=== PATIENT | female | born 1950 | race Caucasian/White ===

== ENCOUNTER 2016-04-23 09:30 | Day surgery (SDC) | payer MEDICARE, OTHER ==
[~2016-04-23] VITALS: Ht 154.9 cm; Wt 65.0 kg
[~2016-04-23 09:30] MED LIST: 0.9% Sodium Chloride 1,000 ML IV PRN; ACYC200C PO; BUTA-253 PO; CHOL100045 PO; ESTR1TAB36 PO; MEDR2.5T7 PO; MINO50CA PO; MULT-666 PO; SYN75 PO; Sodium Chloride LOK Flush 10 mL Syringe IV PRN; fentaNYL-PF 50 mCg/mL 2 mL Inj IVPUSH PRN
[2016-04-23 10:07] VITALS: BP 119/77; PULSE 72; RESP 14; O2SAT 100
[2016-04-23 11:20] VITALS: BP 113/72; PULSE 77; RESP 16; O2SAT 100
[2016-04-23 11:30] VITALS: BP 108/69; PULSE 66; RESP 16; O2SAT 100
[2016-04-23 11:40] VITALS: BP 112/71; PULSE 67; RESP 16; O2SAT 100
--- NOTE | 2016-04-24 11:14 | PATH ---
SURGICAL PATHOLOGY Attending Physician:Arias Hawkins M.D. CASE STATUS: Signed Out PATIENT NAME: JANET MUÑIZ PID: [id number] : 1950 DATE COLLECTED:04/23/2016 19:45 SPECIMEN: 1: Colon, Biopsy 2: Colon, Biopsy CLINICAL HISTORY: SCREENING, COLON POLYPS 1). ASCENDING POLYPS 2). TRANSVERSE POLYPS FINAL DIAGNOSIS: 1.ASCENDING COLON POLYPS: TUBULAR ADENOMA INVOLVING BOTH BIOPSY FRAGMENTS. 2.TRANSVERSE COLON POLYP: TUBULAR ADENOMA INVOLVING SINGLE BIOPSY FRAGMENT. ICD10 CODE D12.2 GROSS DESCRIPTION: The specimen is received in two formalin filled containers labeled with the patient's name. 1). The specimen is sublabeled "ascending polyp" and consists of 2 portions of tissue which aggregate to 0.3 x 0.3 x 0.2 CM. The specimen is entirely submitted in cassette 1A. 2). The specimen is sublabeled "transverse polyps" and consists of 2 portions of tissue which aggregate to 0.3 x 0.3 x 0.2 CM. The specimen and is entirely submitted in cassette 2A. 04/23/2016 [facility] MICRO DESCRIPTION: See diagnosis. ICD-9 CODES: CPT CODES: 1: 51156 2: 88701 Electronically Signed Out Amanuel Gaspar MD [facility] Pathology [facility] [address], [place] [address] Technical component performed at [facility], [facility] [address], [place], [address]
--- NOTE | 2016-05-14 12:16 | PCM.ENDCOL ---
Colonoscopy Date of Service: Apr 23, 2016 Physician Arias Hawkins MD Indication for Procedure Screening Pre Procedure Diagnosis: Screening Post Procedure Dx & Findings: Polyp hemorrhoids diverticuli Procedure Late entry Colonoscopy PROCEDURE IN DETAIL: Prep adequate Withdrawal time 15 minutes After unremarkable rectal examination the Olympus video colonoscope was inserted patient's anal canal and was advanced to cecum. Landmarks were identified including the ileocecal valve and appendiceal orifice. Scope was withdrawn systematically. Visualized colonic mucosa showed healthy shiny mucosa with normal healthy-appearing vasculature. In the ascending colon, 5 mm polyp noted. This was removed completely using cold snare. In the transverse colon, there was a 1 mm polyp which was removed completely using cold forceps. In the sigmoid colon there few diverticuli. In the rectum retroflexion was done which showed hemorrhoids. Anal canal was inspected carefully on the way out and hemorrhoids noted. Impression Polyp 2 status post complete removal Diverticuli Hemorrhoids Recommendation Repeat colonoscopy 3 years Diverticular diet Presedation Assessment Risks and Benefits Informed consent was obtained from the patient after all risks and benefits including but not limited to drug reaction, infection, pain, bleeding, perforation, as well as alternatives were discussed. Patient monitoring Continuous pulse oximetry, cardiac monitoring, blood pressure monitoring, IV access, and oxygen at 2L per nasal cannula. Periprocedural Fentanyl: Fentanyl 50mcg Incrementally Midazolam: Midazolam 2mg Incrementally Complications There were no periprocedural complications identified. Post Procedure Plan Post Procedure Recommendations 1. Restrict activities today. 2. Resume normal activities in the morning. 3. Resume medications. 4. Patient informed of normal post procedure side effects as bloating, drowsiness, blood streaking in the stool. 5. average risk CRCS. If colon polyps come back as: -Hyperplastic- can repeat colonoscopy in 10 years -Tubular adenoma- repeat colonoscopy in 5 years -Tubulovillous/villous adenoma- repeat colonoscopy in 3 years -If any dysplasia- return to clinic as soon as possible 6. Please don't hesitate to call me with any questions. Arias Hawkins MD May 14, 2016 12:16
== END 2016-04-23 23:59 | disposition home or self-care (01) ==
LOC: END 09:30
PROVIDERS: ATTEND Internal Medicine
DX: Z12.11 Encounter for screening for malignant neoplasm of colon (principal); D12.2 Benign neoplasm of ascending colon; D12.3 Benign neoplasm of transverse colon; K57.30 Diverticulosis of large intestine without perforation or abscess without bleeding; K64.8 Other hemorrhoids; E78.5 Hyperlipidemia, unspecified; E03.9 Hypothyroidism, unspecified; K21.9 Gastro-esophageal reflux disease without esophagitis
CPT/HCPCS: 45380; 45385; 88305; 99153; G0500; J2250; J3010; J7030